=== PATIENT | male | born 1990 | race Caucasian/White ===

== ENCOUNTER 2018-12-18 15:26 | Emergency (ER) | payer OTHER ==
[~2018-12-18] VITALS: Ht 190.5 cm; Wt 100.0 kg
[~2018-12-18 15:26] MED LIST: AMOXICILLIN875 MG OR; NO HOME MEDS; ULTRAM50 MG OR
[2018-12-18 18:07] VITALS: BP 138/80
== END 2018-12-18 19:19 | disposition home or self-care (01) | DRG 563 ==
LOC: ED 15:26
PROC: 0RSJXZZ Reposition Right Shoulder Joint, External Approach (ICD-10-PCS; principal; 2018-12-18)
DX: S43.014A Anterior dislocation of right humerus, initial encounter (principal); Y93.K1 Activity, walking an animal; Y92.89 Other specified places as the place of occurrence of the external cause; Y99.0 Civilian activity done for income or pay
CPT/HCPCS: J2060

== ENCOUNTER 2019-07-24 09:20 | Emergency (ER) | payer SELFPAY ==
[~2019-07-24] VITALS: Ht 190.5 cm; Wt 90.0 kg
[2019-07-24] MEDS ORDERED: NAPROXEN500 MG PO (13:21)
[2019-07-24 13:42] VITALS: BP 127/74
== END 2019-07-24 14:07 | disposition home or self-care (01) | DRG 563 ==
LOC: ED 09:20
DX: M24.411 Recurrent dislocation, right shoulder (principal)